=== PATIENT | male | born 1960 ===

== ENCOUNTER 2023-07-16 15:58 | Emergency (ER) | payer OTHER, SELFPAY ==
--- NOTE | 2023-07-16 | DI.RAD.S_ITS ---
PROCEDURE: XR ANKLE LT MIN 3V INDICATIONS: Trauma. Open fracture. TECHNIQUE: 3 views of the ankle were acquired. COMPARISON: [facility], CR, XR TIBIA FIBULA LT 2V, 07/16/2023, 14:50. FINDINGS: Bones: Significantly displaced and comminuted fractures can be seen of the distal tibial shaft and the distal fibular shaft. There is widening of the syndesmosis. Intra-articular involvement of the distal tibia can be seen on the lateral view. The talar dome demonstrates no surjit abnormality. Plantar and Achilles calcaneal spurs are seen. Soft tissues: Associated soft tissue injury can be seen, with significant laceration and soft tissue gas. IMPRESSION: Highly comminuted fractures of the distal tibia and distal fibula, with intra-articular involvement of the distal tibia. Associated soft tissue injury can be seen, with lacerations and soft tissue gas. Dictated by: Scott Enamorado M.D. on 07/16/2023 at 15:01 Approved by: Scott Enamorado M.D. on 07/16/2023 at 15:03
--- NOTE | 2023-07-16 | DI.RAD.S_ITS ---
PROCEDURE: XR TIBIA FIBULA LT 2V INDICATIONS: Open fracture. TECHNIQUE: 2 views of the tibia and fibula were acquired. COMPARISON: [facility], CR, XR ANKLE LT MIN 3V, 07/16/2023, 14:50. FINDINGS: Bones: Prominently displaced, highly comminuted fractures of the distal tibia and distal fibula can be seen. There is intra-articular involvement of the distal tibia. No more proximal fracture can be seen. Soft tissues: Soft tissue gas and lacerations can be seen. IMPRESSION: Distal tibial and distal fibular fractures, with intra-articular involvement of the distal tibia. Associated lacerations and soft tissue gas can be seen. Dictated by: Scott Enamorado M.D. on 07/16/2023 at 15:03 Approved by: Scott Enamorado M.D. on 07/16/2023 at 15:04
[2023-07-16 15:58] VITALS: BP 186/103; PULSE 76; RESP 16; TEMP 37; O2SAT 94
[2023-07-16] MEDS: HYDROMORPHONE 1 MG INJ IV ×2 (16:09→17:04)
== END 2023-07-16 17:25 | disposition short-term general hospital (02) ==
PROVIDERS: Emergency Provider Emergency Medicine
DX: S82.302B Unspecified fracture of lower end of left tibia, initial encounter for open fracture type I or II (principal); S82.402B Unspecified fracture of shaft of left fibula, initial encounter for open fracture type I or II; W11.XXXA Fall on and from ladder, initial encounter
CPT/HCPCS: 73590; 73610; 96374; 96376; 99283; 99291; G0390; J1170